=== PATIENT | male | born 1960 | race Caucasian/White ===

== ENCOUNTER 2023-04-25 13:15 | Outpatient (CLI) | payer OTHER ==
--- NOTE | 2023-04-25 13:55 | Sleep Patient Instructions ---
Sleep Center Visit Summary - Patient Visit Information Reason for Visit: Initial consult for evaluation of sleep disordered breathing and other sleep issues. - Patient Instructions Instructions Attached: Sleep Study Home Monitor, Sleep Clinic Visit, Sleep Study Additional Instructions: You will be completing a sleep study, either an in-lab polysomnography (PSG) or home sleep study (HST). You will follow-up in the sleep care office after the sleep study is completed to hear the results and talk about therapy, if needed. You will be called by our office staff to schedule this appointment, but you may contact us with any questions. - Clinic Information Contact: [facility] [address] [place] [address] [email or web address] T: [phone]
--- NOTE | 2023-04-25 14:05 | SLEEP CARE CONSULTATION ---
Information from patient questionnaire entered by Karis Koenig. I have reviewed and concur with the information entered by Karis Koenig. This document represents the service I personally performed and the decisions made by me, Lisa Garcia ARNP. History of Present Illness Service Date and Time: 04/25/2023 1315 Reason for Visit: New patient Chief Complaint: reports: Snoring, Excessive daytime sleepiness, Observed pauses in breathing Date of Onset: 10YRS Usual bedtime: 10PM Time it takes to fall asleep: 10MINS Snores at night: Yes Observed to quit breathing while asleep: Yes Sleeps alone due to snoring: No Number of times waking at night: 1 Reasons for waking at night: reports: Other (NOISE). denies: Choking, Snoring, Gasping for air Toss, Turn, or Twitch while sleeping: No Recalls having dreams: No Usually gets out of bed at: 5AM Feels refreshed in the morning: No Morning headache: No Sleepy or fatigued during the day: Yes Ever fallen asleep while driving: No Takes day naps: Yes (just about daily for 45 mins to 1.5 hrs) Dreams during day naps: No Prior sleep studies: No Additional HPI information: I had the pleasure of seeing MASON MCKEON today regarding the possibility of him having a sleep disorder. His current complaints are excessive daytime sleepiness, snoring and observed pauses in breathing. He states he saw his primary care because he is very tired during the day and it is affecting his ability to things done that he wants to do. He came here for evaluation. 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 Patient is Single and lives in . Have you smoked in the past 12 months: No Alcohol use: Yes Alcohol amount and frequency: 2 BEERS WEEK Caffeine use: Yes Caffeine amount and frequency: 3CUPS DAILY Family History Family history of sleep disordered breathing: Yes Family Hx Sleep Apnea: Other: Sleep apnea - Treated (DAUGHTER 39) Allergies and Home Medications Known drug allergies: No Drug allergies reviewed: Yes Home medication list reviewed: Yes Allergy and home medication list: Home Medications Medication Instructions Recorded Confirmed Last Taken Type Loratadine/Pseudoephedrine See Rx Instructions .ROUTE .COMPLEX 04/24/23 04/25/23 Unknown History [Claritin-D 12 Hour Tablet] Review of Systems Weight gain over past 5 years: 30 Cardiovascular: denies: high blood pressure Respiratory: reports: sputum production Gastrointestinal: denies: heartburn Neurological: reports: headaches Psychiatric: denies: anxiety, depression Ear/Nose/Throat: reports: nasal congestion, sinus problems, dry mouth/throat. denies: tonsillectomy Endocrine: reports: sluggishness, excessive thirst Musculoskeletal: reports: back pain, joint swelling Immunologic: reports: sneezing, allergies to food or environment (hayfever, molds) Physical Exam Vital signs obtained and entered by: KARIS Decker MA Blood Pressure: 130/84 (LEFT ARM) Cuff size: regular Heart Rate: 82 O2 Saturation: 98 Height: 6 ft 2 in Weight: 328 lb Body Mass Index: 42.0 BMI Classification: Morbidly Obese Neck circumference: 18.5 Mouth and throat: narrow oropharynx Soft palate: long Hard palate: normal Uvula: normal Uvula visualization: 0% Mallampati Class IV Tongue: enlarged in size with teeth tian on lateral edges Tonsils: 1+ Neck: normal w/o lymphadenopathy or thyromegaly Heart: regular rate and rhythm Lungs: clear bilaterally Impression and Plan 1. Suspected Obstructive Sleep Apnea-Hypopnea Syndrome, as suggested by a history of loud and irregular snoring, observed cessation of breath while asleep, unrefreshed sleep, and excessive daytime sleepiness. Narrow oropharynx and obesity are common predisposing factors for obstructive sleep apnea-hypopnea syndrome. I recommend proceeding to polysomnography to confirm the diagnosis and to assess severity. If the patient has significant sleep disordered breathing, a manual CPAP titration study will also be performed to find the optimal treatment pressure. I informed the patient of what the sleep studies involve and after some discussion, obtained agreement to proceed. The pathophysiology of obstructive sleep apnea-hypopnea syndrome was discussed with the patient and health risks of cardiovascular and cerebrovascular disease if not treated. Risks of drowsy driving discussed in detail and patient advised to avoid long distance driving and to mold puller at the first sign of drowsiness. Patient agreed to plan. * Schedule polysomnography. * Avoid long distance driving or driving when feeling sleepy. * Avoid alcohol, sedative and muscle relaxant around bedtime. * Attempt to lose weight. * Review instructions provided by trained office staff on how to prepare for the sleep study. * Return for follow-up after sleep study completed. Counseling Topics: Weight loss health impact Plan: PSG and followup Visit Type: In Office Time Spent with Patient (minutes): 30 Provider Statement: I spent 100% of the Face to Face Visit with the patient with greater than 50% spent counseling the patient and coordination of care.
[2023-04-25 14:39] VITALS: BP 130/84; O2SAT 98
== END 2023-04-25 13:16 | disposition home or self-care (01) ==
LOC: SC 13:15
PROVIDERS: ATTEND Nurse Practitioner Family
DX: R06.81 Apnea, not elsewhere classified (principal); G47.8 Other sleep disorders; G47.10 Hypersomnia, unspecified; R06.83 Snoring
CPT/HCPCS: 99203; 99212

== ENCOUNTER 2023-05-04 08:51 | Outpatient (CLI) | payer BC, OTHER | END 2023-05-04 08:52 | disposition home or self-care (01) | LOC: SC 08:51 | PROVIDERS: ATTEND Nurse Practitioner Family | DX: G47.33 Obstructive sleep apnea (adult) (pediatric) (principal); R09.02 Hypoxemia; E66.01 Morbid (severe) obesity due to excess calories; Z68.41 Body mass index [BMI] 40.0-44.9, adult | CPT/HCPCS: 95806 ==

== ENCOUNTER 2023-05-29 14:17 | Outpatient (CLI) | payer BC ==
--- NOTE | 2023-05-29 15:02 | Sleep Patient Instructions ---
Sleep Center Visit Summary - Patient Visit Information Reason for Visit: Sleep study follow-up - Patient Instructions Instructions Attached: CPAP, CPAP Dc Additional Instructions: You are being started on CPAP therapy with pressure setting at 4-15 cmH2O. You will need to call the sleep care office to set up your follow up once you have your APAP machine and we will schedule a visit to check compliance and response to therapy at that time. You may call the office with any concerns about pressure feeling too low or too much for adjustment, if needed. You should contact DME supplier for any questions or concerns about mask or equipment. Please call office to schedule a follow up appointment in the sleep care office one month after obtaining new device. - Clinic Information Contact: [facility] [address] [place] [address] [email or web address] T: [phone]
--- NOTE | 2023-05-29 15:06 | SLEEP CARE CONSULTATION ---
Information from patient questionnaire entered by Mary Grace Koenig. I have reviewed and concur with the information entered by Mary Grace Koenig. This document represents the service I personally performed and the decisions made by me, Lisa Garcia ARNP. History of Present Illness Service Date and Time: 05/29/2023 141 Initial [place] Sleepiness Scale score: 11 (04/18/23) Current [place] Sleepiness Scale score: 10 (05/29/23) Additional HPI information: MASON MCKEON returns for follow up and results of the recently performed home sleep study. The sleep study showed mild obstructive sleep apnea with an average AHI of 7.4 and eric oxygen saturation of 88%. I explained the pathophysiology behind obstructive sleep apnea. We then spent quite a bit of time discussing different treatment options. For mild obstructive sleep apnea, surgery and oral appliance are alternatives to nasal CPAP therapy but in moderate or severe cases, nasal CPAP is the most effective and reliable treatment. Because apnea is primarily in supine position, then positional management therapy could be effective. Methods discussed such as positioning with pillows, using a T-shirt with tennis balls in the back or commercial products that have a pillow format on back to prevent supine sleep. I reviewed the impact of weight changes on sleep apnea and strongly recommended losing weight. After some discussion, the patient opted to go with the nasal CPAP therapy. Nasal autoCPAP set at 4-15 cmH20 will be ordered with rationale explained. A manual titration study will be ordered if unable to find optimal pressure with office adjustments. I explained how CPAP machine works and what to expect when using the machine. Using CPAP every night in order to get used to it was emphasized. Patient advised to put CPAP mask on before getting into bed so as not to fall asleep without CPAP. To assist acclimation to CPAP use, it could also be used for a short time during day while reading or watching TV. The patient was instructed to call the CPAP supplier to discuss any mechanical problem that may occur. If the mask given is uncomfortable or is difficult to keep on through the night even with adjustment, contact the CPAP supplier as many will replace with another mask style if notified before 30 days. If snoring or perceives is not getting enough air or too much air from the machine, notify this office. Patient counseled not drink alcohol less than 4 hours before bedtime as it can increase snoring and apnea. Patient does not drink alcohol. Patient was cautioned about risks of drowsy driving until sleepiness symptoms resolve. Sleep Study - Results Type of Sleep Study: Home sleep study (COMPLETED 05/04/23) Prior sleep studies: No Polysomnography/Home Sleep Study results: Physician Impression: The quality of the study is good. The length of the study is adequate (> 240 minutes). Please also see the tabulated and graphic data. 1. Obstructive Sleep Apnea-Hypopnea (ICD-10 G47.33), mild, with an AHI of 7.4/hr and eric SaO2 of 88%. During the study, the patient had 58 apneas (58 obstructive, 0 central, 0 mixed) and 18 hypopneas. The longest episode lasted 71.5 seconds. The respiratory events occur red more frequently during supine sleep (supine AHI was 12.8 and non-supine, 5.51). 2. Hypoxemia (ICD-10 R09.02), minimal, with the lowest oxygen saturation of 88 % and 0.3 minutes with SaO2 under 90%. Baseline oxygen saturation was normal (Average oxygen saturation was 96%). Allergies and Home Medications Known drug allergies: No Drug allergies reviewed: Yes Home medication list reviewed: Yes (no changes) Allergy and home medication list: Allergies No Known Drug Allergies Allergy Review of Systems Review of systems same as previous: Yes (NO CHANGE) Physical Exam Vital signs obtained and entered by: MARY GRACE Decker MA Blood Pressure: 140/90 (LEFT ARM) Cuff size: regular Heart Rate: 86 O2 Saturation: 98 Height: 6 ft 2 in Weight: 323 lb 6.4 oz Body Mass Index: 41.5 BMI Classification: Morbidly Obese Impression and Plan 1. Obstructive Sleep Apnea-Hypopnea Syndrome, mild, with lowest oxygen saturation of 88%. Obviously this is the cause of the patients symptoms of unrefreshed sleep, and excessive daytime sleepiness. As mentioned above, the patient will be started on nasal autoCPAP therapy with pressure set at 4-15 cmH2 O. Compliance guidelines also reviewed. A copy of compliance guidelines will be given for reference at check out. Because the apnea is more severe supine, I instructed to avoid sleeping supine using pillow positioning until able to start CPAP use. 2. Obesity, unspecified. Currently patients BMI is 41.5. Obesity increases the risk of apnea, CPAP pressure requirements and overall health risks especially cardiovascular and diabetes. Thus patient is advised to lose weight. * Nasal auto CPAP therapy, pressure at 4-15 cm H2O. * Attempt to lose weight. * Avoid alcohol consumption near bedtime. * Avoid supine sleep until using CPAP. * The patient is again cautioned about driving until sleepiness completely resolves. * Return one month after CPAP obtained. I will assess response to therapy and compliance at that time. Counseling Topics: Sleeping position, Weight loss health impact Prescriptions: Auto CPAP Visit Type: In Office Time Spent with Patient (minutes): 20 Provider Statement: I spent 100% of the Face to Face Visit with the patient with greater than 50% spent counseling the patient and coordination of care.
[2023-05-29 15:14] VITALS: BP 140/90; O2SAT 98
== END 2023-05-29 14:18 | disposition home or self-care (01) ==
LOC: SC 14:17
PROVIDERS: ATTEND Nurse Practitioner Family
DX: G47.33 Obstructive sleep apnea (adult) (pediatric) (principal); E66.01 Morbid (severe) obesity due to excess calories; Z68.41 Body mass index [BMI] 40.0-44.9, adult
CPT/HCPCS: 99212; 99213

== ENCOUNTER 2024-01-24 09:22 | Outpatient (CLI) | payer BC ==
--- NOTE | 2024-01-24 10:05 | Sleep Patient Instructions ---
Sleep Center Visit Summary - Patient Visit Information Reason for Visit: First compliance follow-up with CPAP therapy - Patient Instructions Additional Instructions: You were here for follow up of CPAP therapy. You will be continued on CPAP therapy with pressure at 5-10 cmH2O. Please let us know if the pressure change is uncomfortable and we can make further adjustments of the pressure. You should follow up with sleep care in 3 months. You may contact us sooner for any questions or concerns. - Clinic Information Contact: [facility] [address] [place] [address] [email or web address] T: [phone]
--- NOTE | 2024-01-24 10:09 | SLEEP CARE CONSULTATION ---
Information from patient questionnaire entered by Karis Koenig. I have reviewed and concur with the information entered by Karis Koenig. This document represents the service I personally performed and the decisions made by , Lisa Garcia ARNP. History of Present Illness Service Date and Time: 01/24/2024921 Previous diagnosis: Mild, Obstructive Sleep Apnea-Hypopnea Syndrome AHI: 7.4 (on 05/04/23) Reason for follow up: first compliance Equipment type: CPAP (RESMED Airsense 11, s/u 07/25/2023; NEED MACHINE) Equipment obtained from: Other ([employer]) Mask style: Full face Mask brand: Resmed (AirFit; F20) Backup mask available: No Last cushion change: several months Prior sleep studies: No Type of Sleep Study: Home sleep study (COMPLETED 05/04/23) HPI additional information: MASON MCKEON was diagnosed to have mild, AHI 7.4, obstructive sleep apnea- hypopnea syndrome and returned today for CPAP therapy first compliance follow- up. Sleep Study - Results Type of Sleep Study: Home sleep study (COMPLETED 05/04/23) Prior sleep studies: No CPAP Compliance Data - Data Reviewed with Patient Average duration of nightly device use: 7 hours Compliance rate %: 90 (30/30 days used; 07/25/23-08/23/23) Current pressure setting (cmH2O): 4-15 (median 5, avg 8.7, max 10.4) Average residual AHI: 1.3 Central apnea: 0.3 Obstructive apnea: 0.5 Hypopnea: 0.4 Average large leak: 0 L/min Subjective Missed days of use due to: reports: illness, travel Patient concerns: reports: dry mouth, nose, throat (sometimes). denies: aerophagia, mask discomfort, air blowing in eyes, mask leak noise, condensation in mask/hose, nasal congestion, epistaxis Observed to snore while using device: No Current pressure setting perceived as: comfortable On therapy, patient: reports: sleeping better, awakening more refreshed, being more awake and alert during the day, more rested overall. denies: drowsiness while driving Initial [place] Sleepiness Scale score: 11 (04/18/23) Current [place] Sleepiness Scale score: 8 (01/24/24) Allergies and Home Medications Known drug allergies: No Drug allergies reviewed: Yes Home medication list reviewed: Yes (Claritin daily) Allergy and home medication list: Allergies No Known Drug Allergies Allergy (Verified 01/23/24 08:21) Review of Systems Review of systems same as previous: Yes (no changes) Physical Exam Vital signs obtained and entered by: KARIS Decker MA Blood Pressure: 147/99 (LEFT ARM ) Cuff size: long Heart Rate: 73 O2 Saturation: 97 Height: 6 ft 2 in Weight: 320 lb 6.4 oz Body Mass Index: 41.1 BMI Classification: Morbidly Obese Impression and Plan 1. Obstructive Sleep Apnea-Hypopnea Syndrome, mild, with good treatment compliance and good apnea control. On CPAP therapy, the patient has better sleep quality and is more rested overall. He bought his machine and is getting his supplies online as needed. He has felt some improvement of his symptoms. After the initial improvement, he has not noted any other changes. He has no issues with the pressure. The patients pressure will be changed to autoCPAP 5-10 cmH20 to reflect the pressures being used. Patient advised to contact me if pressure change is uncomfortable so that it can be adjusted. Goals for apnea control discussed. Patient's apnea severity and rationale for treatment to reduce apnea, improve sleep quality and reduce cardiovascular and cerebrovascular events was reviewed. 2. Obesity, unspecified. Currently patients BMI is 41.1. Obesity increases the risk of apnea, CPAP pressure requirements and overall health risks especially cardiovascular and diabetes. Thus patient is advised to lose weight. * Change auto CPAP pressure to 5-10 cmH2O * Notify me if snoring with mask or feeling that the pressure is too much or too little * Attempt to lose weight * Call this office if any problems using CPAP * Return for follow up in 3 months, or sooner if concerns arise Adjust device pressure to (cmH2O): 5-10 Counseling Topics: Spare mask, Weight loss health impact Follow up with Sleep Care in: 3 months Visit Type: In Office Time Spent with Patient (minutes): 22 Provider Statement: I spent 100% of the Face to Face Visit with the patient with greater than 50% spent counseling the patient and coordination of care.
[2024-01-24 10:16] VITALS: BP 147/99; O2SAT 97
== END 2024-01-24 09:23 | disposition home or self-care (01) ==
LOC: SC 09:22
PROVIDERS: ATTEND Nurse Practitioner Family
DX: G47.33 Obstructive sleep apnea (adult) (pediatric) (principal); E66.01 Morbid (severe) obesity due to excess calories; Z68.41 Body mass index [BMI] 40.0-44.9, adult
CPT/HCPCS: 99212; 99213